=== PATIENT | female | born 1940 | race Caucasian/White ===

== ENCOUNTER 2020-11-09 07:10 | Emergency (ER) | payer MEDICARE, OTHER ==
[2020-11-09 07:33] VITALS: BP 128/62; PULSE 89
--- NOTE | 2020-11-09 07:50 | EDM.PDOC ---
<Benson Mederos - Last Filed: 11/09/20 10:58> ED HPI GENERAL MEDICAL PROBLEM - General Chief Complaint: Genitourinary Problem Stated Complaint: DIZZY/CONFUSED Time Seen by Provider: 11/09/20 07:48 - Related Data Allergies Allergy/AdvReac Type Severity Reaction Status Date / Time No Known Allergies Allergy Verified 11/09/20 07:32 Home Meds: Home Meds Aspirin [Halfprin] 81 mg PO DAILY 08/15/15 [History] Multivitamin [Multivitamins] 1 tab PO DAILY 08/15/15 [History] amLODIPine [Norvasc] 5 mg PO DAILY 08/15/15 [History] Divalproex Sodium [Divalproex Sodium ER] 250 mg PO BID 09/28/16 [History] Fish Oil/[place]-3 Fatty Acids [Fish Oil 1,000 MG] 2 each PO DAILY 10/01/16 [History] Psyllium with Sucrose [Metamucil] 1 packet PO DAILY PRN 10/01/16 [History] Acetaminophen/oxyCODONE [Percocet 325-5 MG] 1 - 2 tab PO Q4H PRN #60 tablet 10/04/16 [Rx] Cyclobenzaprine [Flexeril] 10 mg PO TID PRN #40 tablet 10/04/16 [Rx] Docusate Sodium [Colace] 100 mg PO BID #60 cap 10/04/16 [Rx] Rivaroxaban [Xarelto] 10 mg PO DAILY #12 tablet 10/04/16 [Rx] Phenazopyridine [Pyridium] 100 mg PO TID PRN #6 tab 11/09/20 [Rx] cephALEXin [Keflex] 500 mg PO BID #10 cap 11/09/20 [Rx] Course - Re-Assessments/Exams Free Text/Narrative Re-Assessment/Exam: 11/09/20 10:[address] Barr. Her WBC was slightly elevated at 10.93. Her anion gap is elevated at 15.1. Her total bili was elevated at 1.3. Her CRP is elevated at 8.7. Her UA was positive for UTI. She feels better after some fluids. I have ordered rocephin 2 grams IV. I will also get her on keflex and pyridium. She is not septic. I do not feel she needs to be admitted at this time. Departure - Departure Time of Disposition: 11:30 Disposition: Home, Self-Care 01 Condition: Good Clinical Impression: UTI, Urinary tract infectious disease - Discharge Information *PRESCRIPTION DRUG MONITORING PROGRAM REVIEWED*: Not Applicable *COPY OF PRESCRIPTION DRUG MONITORING REPORT IN PATIENT ANNABELLA: Not Applicable Prescriptions: cephALEXin [Keflex] 500 mg PO BID #10 cap Phenazopyridine [Pyridium] 100 mg PO TID PRN #6 tab PRN Reason: Pain Instructions: Urinary Tract Infection, Adult Referrals: Miki Luna MD [Primary Care Provider] - 1 Week Forms: ED Department Discharge Additional Instructions: Drink plenty of fluids. Take the keflex 500mg 2 times per day for 5 days. Take tylenol or motrin for any fever or pain. Take the pyridium 100mg 3 times per day as needed for pain with urination for a couple days. Follow up with Dr Luna within a week. Please return if you are worse. <Naveen Barr - Last Filed: 11/16/20 07:12> ED HPI GENERAL MEDICAL PROBLEM - General Source of Information: Reports: Patient, Family (spouse) History Limitations: Reports: No Limitations - History of Present Illness INITIAL COMMENTS - FREE TEXT/NARRATIVE: 80-year-old female presents to the ED in the accompaniment of her . She reports that she has had severe dysuria urgency and frequency develop over the last 3 days. Associated chills all day yesterday. She feels confused disoriented and dehydrated. She has lost her appetite. Occasional nausea but no vomiting. She does not believe she is ever had a urinary tract infection before. She denies any flank pain. States her bowels have not moved for the last 3 days. She did not have any Covid illness this year. She has completed both of her Covid vaccine shots. Onset: Gradual Onset Date: 11/06/20 Duration: Day(s):, Getting Worse Location: Reports: Abdomen (Suprapubic abdominal discomfort.), Other (Is severe urgency dysuria and frequency x3 days. She is not appreciating blood in her urine in spite of being on Xarelto.) Quality: Reports: Ache Severity: Moderate Improves with: Reports: None Worsens with: Reports: None Context: Reports: Other (Spontaneous occurrence.). Denies: Activity, Exercise, Lifting, Sick Contact, Trauma Associated Symptoms: Reports: Confusion, Fever/Chills, Loss of Appetite, Malaise, Nausea/Vomiting, Weakness. Denies: Chest Pain, Cough, cough w sputum, Diaphoresis (Chills all day yesterday.), Headaches, Rash, Seizure (Occasional nausea no vomiting), Shortness of Breath, Syncope Treatments SUPPLY ANALYST: Reports: Other (see below) (None.) Past Medical History HEENT History: Reports: Cataract, Other (See Below) Other HEENT History: cataract surgery, reading glasses Cardiovascular History: Reports: High Cholesterol, Hypertension Respiratory History: Reports: None Gastrointestinal History: Reports: GERD Genitourinary History: Reports: Urinary Incontinence, Other (See Below) Other Genitourinary History: nocturia, frequency, urgency [employer] History: Reports: Other [employer] History: hysterectomy Musculoskeletal History: Reports: Osteoarthritis Neurological History: Reports: Migraines, Seizure Psychiatric History: Reports: None Endocrine/Metabolic History: Reports: Obesity/BMI 30+, Other (See Below) Other Endocrine/Metabolic History: Pre-diabetes Hematologic History: Reports: None Immunologic History: Reports: None Oncologic (Cancer) History: Reports: None Dermatologic History: - Infectious Disease History Infectious Disease History: Reports: Mumps - Past Surgical History HEENT Surgical History: Reports: Adenoidectomy, Naso-Sinus Surgery, Tonsillectomy GI Surgical History: Reports: Appendectomy, Cholecystectomy, Colonoscopy Female Surgical History: Reports: Hysterectomy Endocrine Surgical History: Reports: Other (See Below) Other Endocrine Surgeries/Procedures: Goiter Surgery Musculoskeletal Surgical History: Reports: Joint Replacement, Knee Replacement (Knees have been totally replaced.) Other Musculoskeletal Surgeries/Procedures:: right total knee Dermatological Surgical History: Reports: Skin Graft Social & Family History - Family History Cardiac: Reports: [place] Other Cardiac Family History: father of heart attack Oncologic: Reports: Ovarian Other Oncologic Family History: mother of cancer - Tobacco Use Tobacco Use Status *Q: Never Tobacco User - Caffeine Use Caffeine Use: Reports: Coffee, Soda Other Caffeine Use: 2 cups per day - Recreational Drug Use Recreational Drug Use: No - Living Situation & Occupation Living situation: Reports: , with Spouse ED ROS GENERAL - Review of Systems Review Of Systems: See Below Constitutional: Reports: Chills, Malaise, Weakness, Fatigue, Decreased Appetite. Denies: Fever HEENT: Reports: Glasses Respiratory: Reports: No Symptoms Cardiovascular: Reports: Blood Pressure Problem, Lightheadedness. Denies: Chest Pain, Claudication, Dyspnea on Exertion, Edema, Orthopnea, Palpitations, PND, Syncope Endocrine: Reports: Fatigue GI/Abdominal: Reports: Abdominal Pain (Prepubic abdominal discomfort.) : Reports: Dysuria, Frequency, Incontinence (Due to the urgency she has not been able to make to the bathroom on several occasions.), Urgency. Denies: Flank Pain Musculoskeletal: Reports: Other Skin: Reports: No Symptoms (Hip but neck and shoulder pain at times.) Neurological: Reports: Confusion, Dizziness, Weakness Psychiatric: Reports: No Symptoms Hematologic/Lymphatic: Reports: No Symptoms Immunologic: Reports: No Symptoms ED EXAM, RENAL/ - Physical Exam Exam: See Below Exam Limited By: No Limitations General Appearance: Alert, WD/WN, No Apparent Distress, Other (Chance is all questions appropriately. She does not seem confused. Temperature is 36.9 with a pulse of 89 and sinus. Respiratory to 16 with O2 sats of 94% room air BP 128/62.) Eye Exam: Bilateral Eye: Normal Inspection, PERRL Throat/Mouth: Other (Is mildly coated and dry.) Head: Atraumatic, Normocephalic Neck: Normal Inspection, Supple, Non-Tender, Full Range of Motion, Tender Lateral (She states no worse than normal.). No: Carotid Bruit, Lymphadenopathy (L), Lymphadenopathy (R) Respiratory/Chest: No Respiratory Distress, Lungs Clear, Normal Breath Sounds, No Accessory Muscle Use Cardiovascular: Normal Peripheral Pulses, Regular Rate, Rhythm, No Edema, No Gallop, No Murmur, No Rub GI/Abdominal: Normal Bowel Sounds, Soft, Non-Tender, No Organomegaly, Pelvis Stable, Distended (Mildly distended and slightly tympany to percussion.) Back Exam: Normal Inspection, Full Range of Motion. 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 Similarly Q waves leads III and aVF suggestive of old inferior wall myocardial infarction.) ST-T: Depressed (Mild ST segment depression in V5 V6. T wave flattening leads I. T wave inversion aVL nonspecific findings) QT: Normal EKG Interpretation Comments: Abnormal ECG Course - Vital Signs Last Recorded V/S: Last Vital Signs Temp 36.9 C 11/09/20 07:29 Pulse 89 11/09/20 07:29 Resp 16 11/09/20 07:29 BP 128/62 11/09/20 07:29 Pulse Ox 94 L 11/09/20 07:29 - Orders/Labs/Meds Labs: Laboratory Tests 11/09/20 11/09/20 11/09/20 Range/Units 08:07 08:07 08:07 WBC 10.93 H (3.98-10.04) K/mm3 RBC 5.17 (3.98-5.22) M/mm3 Hgb 14.8 D (11.2-15.7) gm/dl Hct 44.2 (34.1-44.9) % MCV 85.5 (79.4-94.8) fl MCH 28.6 (25.6-32.2) pg MCHC 33.5 (32.2-35.5) g/dl RDW Std Deviation 42.0 (36.4-46.3) fL Plt Count 282 D (182-369) K/mm3 MPV 8.8 L (9.4-12.3) fl Neutrophils % (Manual) 76 H (40-60) % Band Neutrophils % 0 (0-10) % Lymphocytes % (Manual) 9 L (20-40) % Atypical Lymphs % 0 % Monocytes % (Manual) 15 H (2-10) % Eosinophils % (Manual) 0 L (0.7-5.8) % Basophils % (Manual) 0 L (0.1-1.2) Platelet Estimate Adequate Anisocytosis 1+ slight Microcytosis 1+ slight RBC Morph Comment Abnormal Sodium 136 (136-145) mEq/L Potassium 4.1 (3.5-5.1) mEq/L Chloride 98 (98-107) mEq/L Carbon Dioxide 27 (21-32) mEq/L Anion Gap 15.1 H (5-15) BUN 11 (7-18) mg/dL Creatinine 0.9 (0.55-1.02) mg/dL Est Cr Clr Drug Dosing 40.55 mL/min Estimated GFR (MDRD) > 60 (>60) mL/min BUN/Creatinine Ratio 12.2 L (14-18) Glucose 105 (83-115) mg/dL Calcium 8.9 (8.5-10.1) mg/dL Magnesium 1.8 (1.8-2.4) mg/dl Total Bilirubin 1.3 H (0.2-1.0) mg/dL AST 14 L (15-37) U/L ALT 20 (14-59) U/L Alkaline Phosphatase 103 (46-116) U/L C-Reactive Protein 8.7 H* (<1.0) mg/dL NT-Pro-B Natriuret Pep 181 (0-450) pg/mL Total Protein 7.9 (6.4-8.2) g/dl Albumin 3.7 (3.4-5.0) g/dl Globulin 4.2 gm/dL Albumin/Globulin Ratio 0.9 L (1-2) Urine Color (Yellow) Urine Appearance (Clear) Urine pH (5.0-8.0) Ur Specific [place] (1.005-1.030) Urine Protein (Negative) Urine Glucose (UA) (Negative) Urine Ketones (Negative) Urine Occult Blood (Negative) Urine Nitrite (Negative) Urine Bilirubin (Negative) Urine Urobilinogen (0.2-1.0) Ur Leukocyte Esterase (Negative) Urine RBC (0-5) /hpf Urine WBC (0-5) /hpf Ur Epithelial Cells (0-5) /hpf Urine Bacteria (FEW) /hpf Urine Mucus (FEW) /hpf 11/09/20 Range/Units 10:17 WBC (3.98-10.04) K/mm3 RBC (3.98-5.22) M/mm3 Hgb (11.2-15.7) gm/dl Hct (34.1-44.9) % MCV (79.4-94.8) fl MCH (25.6-32.2) pg MCHC (32.2-35.5) g/dl RDW Std Deviation (36.4-46.3) fL Plt Count (182-369) K/mm3 MPV (9.4-12.3) fl Neutrophils % (Manual) (40-60) % Band Neutrophils % (0-10) % Lymphocytes % (Manual) (20-40) % Atypical Lymphs % % Monocytes % (Manual) (2-10) % Eosinophils % (Manual) (0.7-5.8) % Basophils % (Manual) (0.1-1.2) Platelet Estimate Anisocytosis Microcytosis RBC Morph Comment Sodium (136-145) mEq/L Potassium (3.5-5.1) mEq/L Chloride (98-107) mEq/L Carbon Dioxide (21-32) mEq/L Anion Gap (5-15) BUN (7-18) mg/dL Creatinine (0.55-1.02) mg/dL Est Cr Clr Drug Dosing mL/min Estimated GFR (MDRD) (>60) mL/min BUN/Creatinine Ratio (14-18) Glucose (83-115) mg/dL Calcium (8.5-10.1) mg/dL Magnesium (1.8-2.4) mg/dl Total Bilirubin (0.2-1.0) mg/dL AST (15-37) U/L ALT (14-59) U/L Alkaline Phosphatase (46-116) U/L C-Reactive Protein (<1.0) mg/dL NT-Pro-B Natriuret Pep (0-450) pg/mL Total Protein (6.4-8.2) g/dl Albumin (3.4-5.0) g/dl Globulin gm/dL Albumin/Globulin Ratio (1-2) Urine Color Yellow (Yellow) Urine Appearance Cloudy H (Clear) Urine pH 6.0 (5.0-8.0) Ur Specific [place] 1.020 (1.005-1.030) Urine Protein 2+ H (Negative) Urine Glucose (UA) Negative (Negative) Urine Ketones Negative (Negative) Urine Occult Blood 2+ H (Negative) Urine Nitrite Positive H (Negative) Urine Bilirubin Negative (Negative) Urine Urobilinogen 0.2 (0.2-1.0) Ur Leukocyte Esterase 2+ H (Negative) Urine RBC 20-30 H (0-5) /hpf Urine WBC 75-100 H (0-5) /hpf Ur Epithelial Cells 0-5 (0-5) /hpf Urine Bacteria Many H (FEW) /hpf Urine Mucus Few (FEW) /hpf Meds: Medications Discontinued Medications Generic Name Dose Route Start Last Admin Trade Name Favianq PRN Reason Stop Dose Admin Dextrose/Sodium Chloride 1,000 mls @ 250 mls/hr 11/09/20 08:00 11/09/20 08:11 Dextrose 5%-Normal Saline IV 250 mls/hr ASDIRECTED [place] Administration Ceftriaxone Sodium 2 gm/ 100 mls @ 200 mls/hr 11/09/20 10:58 11/09/20 11:18 Sodium Chloride IV 11/09/20 11:27 200 mls/hr ONETIME ONE Administration - Radiology Interpretation Free Text/Narrative:: 80-year-old female presents to the ED with 3-day history of severe dysuria urgency and frequency to the point that she has had several accidents to the urgency component. She is not appreciating blood in urine in spite of being on Xarelto. She had the chills all day yesterday. She feels weak and confused. Occasional nausea. She has lost her appetite. No vomiting. She is not had a bowel mom for 3 days. Exam reveals that she is afebrile. Plan she will have a septic work-up carried out except for lactic acid at this point time. Chest x- ray will be withheld at this time as well. Plan IV normal saline at 250 mils per hour. at this time care will be transferred to Dr Mederos. Sepsis Event Note (ED) - Evaluation Sepsis Screening Result: No Definite Risk
[2020-11-09] MEDS ORDERED: Dextrose 5%-0.9% NaCl 1,000 ML IV SCH (08:00)
[2020-11-09] MEDS ORDERED: cefTRIAXone 2 GM in Sodium Chloride 0.9% 100 ML IV ONE (10:58)
== END 2020-11-09 12:29 | disposition home or self-care (01) ==
LOC: JD.ED 07:10
DX: N39.0 Urinary tract infection, site not specified (principal); M19.90 Unspecified osteoarthritis, unspecified site; I10 Essential (primary) hypertension; R56.9 Unspecified convulsions; E66.9 Obesity, unspecified; Z68.31 Body mass index [BMI] 31.0-31.9, adult; Z79.82 Long term (current) use of aspirin; Z79.899 Other long term (current) drug therapy; Z79.01 Long term (current) use of anticoagulants
CPT/HCPCS: 36415; 80053; 81001; 83735; 83880; 85007; 85027; 86140; 87040; 87086; 87088; 87186; 93005; 96365; 99283; J0696; J7042; 93010; 99284

== ENCOUNTER 2022-08-04 17:38 | Emergency (ER) | payer MEDICARE, OTHER ==
[2022-08-04 18:16] VITALS: BP 143/65; PULSE 92
[2022-08-04] MEDS ORDERED: Sodium Chloride 0.9% 10 ML Syringe FLUSH PRN (18:28)
[2022-08-04] MEDS ORDERED: Acetaminophen 325 MG Tab PO ONE (19:12)
[2022-08-04] MEDS ORDERED: Dextrose 5%-0.9% NaCl 1,000 ML IV SCH (19:15)
[2022-08-04 19:56] LABS: ESTIMATED GFR 56 mL/min (>60)
[2022-08-04 21:35] LABS: CORONAVIRUS COVID-19 NAA POSITIVE (NEGATIVE)
== END 2022-08-04 23:40 | disposition home or self-care (01) ==
LOC: JD.ED 17:38
DX: U07.1 COVID-19 (principal); E78.00 Pure hypercholesterolemia, unspecified; I10 Essential (primary) hypertension; M19.90 Unspecified osteoarthritis, unspecified site; E66.9 Obesity, unspecified; Z68.30 Body mass index [BMI] 30.0-30.9, adult; Z79.82 Long term (current) use of aspirin; Z79.01 Long term (current) use of anticoagulants
CPT/HCPCS: 0240U; 36415; 71045; 80053; 83605; 83735; 83880; 85025; 85379; 86140; 93005; 96360; 96361; 99284; A9270; J3490; J7042

== ENCOUNTER 2023-04-01 09:45 | Emergency (ER) | payer MEDICARE, OTHER ==
[2023-04-01] MEDS ORDERED: Aspirin 81 MG Tab.Chew PO ONE (10:26)
[2023-04-01] MEDS ORDERED: Dextrose 5%-0.9% NaCl 1,000 ML IV SCH (10:30)
[2023-04-01 11:04] LABS: BASOPHILS ABSOLUTE AUTO 0.03 K/mm3 (0.01-0.08); BASOPHILS PERCENT AUTO 0.4 % (0.1-1.2); EOSINOPHILS ABSOLUTE AUTO 0.16 K/mm3 (0.04-0.36); HEMOGLOBIN 14.3 gm/dl (11.2-15.7); IMMATURE GRAN ABSOLUTE AUTO 0.01 K/mm3 (0.00-0.10); IMMATURE GRAN PERCENT AUTO 0.1 % (<=1.0); LYMPHOCYTES ABSOLUTE AUTO 1.57 K/mm3 (1.18-3.74); LYMPHOCYTES PERCENT AUTO 19.7 % (19.3-51.7); MEAN CORPUSCULAR HEMOGLOBIN 28.9 pg (25.6-32.2); MEAN CORPUSCULAR HGB CONC 33.3 g/dl (32.2-35.5); MEAN PLATELET VOLUME 8.6 fl (9.4-12.3); MONOCYTES ABSOLUTE AUTO 0.89 K/mm3 (0.24-0.36); MONOCYTES PERCENT AUTO 11.2 % (4.7-12.5); NEUTROPHILS PERCENT AUTO 66.6 % (34.0-71.1); PLATELET COUNT,PLT 293 K/mm3 (182-369); RED BLOOD CELL COUNT 4.94 M/mm3 (3.98-5.22); WHITE BLOOD CELL COUNT,WBC 7.96 K/mm3 (3.98-10.04)
[2023-04-01 11:30] LABS: INR 1.03
[2023-04-01 11:32] LABS: ALANINE AMINOTRANSFERASE,ALT 24 U/L (14-59); ALBUMIN 3.9 g/dl (3.4-5.0); ALKALINE PHOSPHATASE 92 U/L (46-116); ANION GAP 14.5 (5-15); ASPARTATE AMNIOTRANSFERASE,AST 15 U/L (15-37); BLOOD UREA NITROGEN,BUN 11 mg/dL (7-18); BUN/CREATININE RATIO 13.8 (14-18); C-REACTIVE PROTEIN < 0.2 mg/dL (<1.0); CALCIUM 8.6 mg/dL (8.5-10.1); CARBON DIOXIDE,CO2 27 mEq/L (21-32); CHLORIDE,CL 103 mEq/L (98-107); CREATININE 0.8 mg/dL (0.55-1.02); EST CRCL DRUG DOSING (CG) 53.75 mL/min; ESTIMATED GFR 73 mL/min (>60); GLUCOSE RANDOM 112 mg/dL (70-99); MAGNESIUM 1.9 mg/dL (1.8-2.4); POTASSIUM,K 4.5 mEq/L (3.5-5.1); PROTEIN TOTAL,TP 7.8 g/dl (6.4-8.2); PTT,PARTIAL THROMBOPLSTIN TIME 25.9 SECONDS (21.7-31.4); SODIUM,NA 140 mEq/L (136-145); TROPONIN I HIGH SENSITIVITY 6 pg/mL (<=51)
[2023-04-01 13:09] VITALS: BP 120/60; PULSE 70
== END 2023-04-01 12:55 | disposition home or self-care (01) ==
LOC: JD.ED 09:45
DX: R07.89 Other chest pain (principal); K59.01 Slow transit constipation; R94.31 Abnormal electrocardiogram [ECG] [EKG]; I10 Essential (primary) hypertension; E78.00 Pure hypercholesterolemia, unspecified; M19.90 Unspecified osteoarthritis, unspecified site; E66.9 Obesity, unspecified; Z68.28 Body mass index [BMI] 28.0-28.9, adult; Z86.16 Personal history of COVID-19; Z79.82 Long term (current) use of aspirin; Z79.899 Other long term (current) drug therapy
CPT/HCPCS: 36415; 71045; 74018; 80053; 83735; 83880; 84484; 85025; 85379; 85610; 85730; 86140; 99285; A9270; J7042

== ENCOUNTER 2023-08-12 12:34 | Emergency (ER) | payer MEDICARE, OTHER ==
[2023-08-12 14:09] LABS: BASOPHILS PERCENT AUTO 0.5 % (0.0-1.0); EOSINOPHILS ABSOLUTE AUTO 0.1 K/mm3 (0.0-0.4); HEMATOCRIT 40.5 % (37.0-47.0); HEMOGLOBIN 13.6 gm/dl (12.0-16.0); IMMATURE GRAN ABSOLUTE AUTO 0.03 K/mm3 (0.00-0.05); IMMATURE GRAN PERCENT AUTO 0.5 % (0.0-0.4); LYMPHOCYTES ABSOLUTE AUTO 1.2 K/mm3 (1.0-4.8); MEAN CORPUSCULAR HEMOGLOBIN 29.6 pg (28.0-32.0); MEAN CORPUSCULAR HGB CONC 33.6 g/dl (32.0-36.0); MEAN CORPUSCULAR VOLUME 88.2 fl (83.0-99.0); MEAN PLATELET VOLUME 8.5 fl (9.4-12.3); MONOCYTES ABSOLUTE AUTO 1.7 K/mm3 (0.0-0.8); MONOCYTES PERCENT AUTO 28.7 % (0.0-8.0); NEUTROPHILS PERCENT AUTO 49.3 % (41.0-71.0); PLATELET COUNT,PLT 207 K/mm3 (150-400); RED BLOOD CELL COUNT 4.59 M/mm3 (4.10-5.30); WHITE BLOOD CELL COUNT,WBC 6.06 K/mm3 (3.9-11.3)
[2023-08-12 14:13] LABS: CORONAVIRUS COVID-19 NAA POSITIVE (NEGATIVE); INFLUENZA A NAA NEGATIVE (NEGATIVE); RESPIRATORY SYNCYTIAL VIR NAA NEGATIVE (NEGATIVE)
[2023-08-12 14:26] LABS: APPEARANCE,URINE CLEAR (Clear); BILIRUBIN,URINE NEGATIVE (Negative); COLOR,URINE LIGHT YELLOW (Yellow); GLUCOSE,URINE NEGATIVE (Negative); KETONES,URINE NEGATIVE (Negative); LEUKOCYTE ESTERASE,URINE NEGATIVE (Negative); NITRITE,URINE NEGATIVE (Negative); OCCULT BLOOD,URINE 1+ (Negative); PROTEIN,URINE NEGATIVE (Negative); UROBILINOGEN,URINE 0.2 (0.2-1.0)
[2023-08-12 14:37] LABS: BACTERIA,URINE FEW /hpf (FEW); MUCUS,URINE FEW /hpf (FEW); SQUAMOUS EPITHELIAL CELLS,UR 0-5 /hpf (0-5); WBC,URINE 0-5 /hpf (0-5)
[2023-08-12 14:41] LABS: A/G RATIO 0.9 (1-2); ALBUMIN 3.4 g/dl (3.4-5.0); ANION GAP 10.7 (5-15); BILIRUBIN TOTAL 0.8 mg/dL (0.2-1.0); BUN/CREATININE RATIO 13.3 (14-18); C-REACTIVE PROTEIN 1.1 mg/dL (<1.0); CALCIUM 8.1 mg/dL (8.5-10.1); CREATININE 0.9 mg/dL (0.55-1.02); EST CRCL DRUG DOSING (CG) 38.49 mL/min; POTASSIUM,K 3.7 mEq/L (3.5-5.1); PROTEIN TOTAL,TP 7.3 g/dl (6.4-8.2)
[2023-08-12 14:58] LABS: SLIDE REVIEW NORMAL SMEAR
[2023-08-12] MEDS ORDERED: predniSONE 20 MG Tab PO ONE (15:09)
[2023-08-12 20:20] VITALS: BP 116/60; PULSE 72
== END 2023-08-12 15:29 | disposition home or self-care (01) ==
LOC: JD.ED 12:34
DX: U07.1 COVID-19 (principal); R09.02 Hypoxemia; I10 Essential (primary) hypertension; E78.00 Pure hypercholesterolemia, unspecified; Z79.82 Long term (current) use of aspirin; M19.90 Unspecified osteoarthritis, unspecified site; Z86.73 Personal history of transient ischemic attack (TIA), and cerebral infarction without residual deficits; Z90.49 Acquired absence of other specified parts of digestive tract; Z90.710 Acquired absence of both cervix and uterus; Z79.899 Other long term (current) drug therapy
CPT/HCPCS: 0241U; 36415; 70450; 71045; 80053; 81001; 85025; 86140; 99284; J7512

== ENCOUNTER 2023-08-24 08:58 | Emergency (ER) | payer MEDICARE, OTHER ==
[2023-08-24] MEDS ORDERED: Sodium Chloride 0.9% 10 ML Syringe FLUSH PRN (09:03)
[2023-08-24 10:08] LABS: BASOPHILS PERCENT AUTO 0.4 % (0.0-1.0); EOSINOPHILS ABSOLUTE AUTO 0.2 K/mm3 (0.0-0.4); EOSINOPHILS PERCENT AUTO 1.5 % (0.0-6.0); HEMATOCRIT 42.2 % (37.0-47.0); HEMOGLOBIN 14.4 gm/dl (12.0-16.0); IMMATURE GRAN ABSOLUTE AUTO 0.08 K/mm3 (0.00-0.05); IMMATURE GRAN PERCENT AUTO 0.7 % (0.0-0.4); LYMPHOCYTES ABSOLUTE AUTO 1.2 K/mm3 (1.0-4.8); LYMPHOCYTES PERCENT AUTO 10.9 % (24.0-44.0); MEAN CORPUSCULAR HEMOGLOBIN 29.3 pg (28.0-32.0); MEAN CORPUSCULAR HGB CONC 34.1 g/dl (32.0-36.0); MEAN CORPUSCULAR VOLUME 85.9 fl (83.0-99.0); MEAN PLATELET VOLUME 8.7 fl (9.4-12.3); MONOCYTES ABSOLUTE AUTO 1.2 K/mm3 (0.0-0.8); MONOCYTES PERCENT AUTO 10.5 % (0.0-8.0); NEUTROPHILS ABSOLUTE AUTO 8.7 K/mm3 (1.8-7.7); PLATELET COUNT,PLT 209 K/mm3 (150-400); RED BLOOD CELL COUNT 4.91 M/mm3 (4.10-5.30); WHITE BLOOD CELL COUNT,WBC 11.38 K/mm3 (3.9-11.3)
[2023-08-24 10:36] LABS: APPEARANCE,URINE SLT CLOUDY (Clear); BILIRUBIN,URINE NEGATIVE (Negative); COLOR,URINE YELLOW (Yellow); GLUCOSE,URINE NEGATIVE (Negative); KETONES,URINE NEGATIVE (Negative); LEUKOCYTE ESTERASE,URINE NEGATIVE (Negative); NITRITE,URINE NEGATIVE (Negative); OCCULT BLOOD,URINE 1+ (Negative); PH,URINE 6.5 (5.0-8.0); PROTEIN,URINE NEGATIVE (Negative)
[2023-08-24 10:36] LABS: A/G RATIO 0.9 (1-2); ALBUMIN 3.4 g/dl (3.4-5.0); ANION GAP 15.5 (5-15); BUN/CREATININE RATIO 17.1 (14-18); CALCIUM 8.2 mg/dL (8.5-10.1); CREATININE 0.7 mg/dL (0.55-1.02); EST CRCL DRUG DOSING (CG) 49.49 mL/min; MAGNESIUM 1.9 mg/dL (1.8-2.4); POTASSIUM,K 4.5 mEq/L (3.5-5.1); PROTEIN TOTAL,TP 7.1 g/dl (6.4-8.2)
[2023-08-24 11:07] LABS: BACTERIA,URINE FEW /hpf (FEW); RBC,URINE 0-5 /hpf (0-5); SQUAMOUS EPITHELIAL CELLS,UR 0-5 /hpf (0-5); WBC,URINE 0-5 /hpf (0-5)
[2023-08-24 11:08] LABS: MUCUS,URINE FEW /hpf (FEW); YEAST BUDDING,URINE FEW (NOT SEEN)
[2023-08-24 11:22] VITALS: BP 142/76; PULSE 72
== END 2023-08-24 11:30 | disposition home or self-care (01) ==
LOC: JD.ED 08:58
DX: D72.828 Other elevated white blood cell count (principal); R07.89 Other chest pain; I10 Essential (primary) hypertension; E78.00 Pure hypercholesterolemia, unspecified; E66.9 Obesity, unspecified; Z86.73 Personal history of transient ischemic attack (TIA), and cerebral infarction without residual deficits; Z79.899 Other long term (current) drug therapy; Z86.16 Personal history of COVID-19; Z79.82 Long term (current) use of aspirin
CPT/HCPCS: 36415; 71045; 71045-26; 80053; 81001; 83735; 84484; 85025; 93005; 93010; 99284; 99285